=== PATIENT | male | born 1990 | race Caucasian/White ===

== ENCOUNTER 2021-10-30 16:24 | Emergency (ER) | payer OTHER, SELFPAY ==
[2021-10-30 16:21] VITALS: BP 122/74; PULSE 108; RESP 16; TEMP 36.8; O2SAT 99; BMI 24.4
--- NOTE | 2021-10-30 16:33 | ECG_ITS ---
APPROVED REPORT Exam: Resting ECG HR:109 bpm ECG Measurements Heart Rate 109 AXES NM 120 P 72 QRSd 104 QRS 87 QT 348 T 43 QTc 412 Conclusion SINUS TACHYCARDIA POSSIBLE LATERAL MYOCARDIAL INFARCTION , PROBABLY OLD [30 ms Q WAVE IN I/aVL/V5/V6] ABNORMAL ECG UNCONFIRMED REPORT Electronically signed by : Juan De La Paz MD 11/01/2021 19:34:42
--- NOTE | 2021-10-30 16:35 | HMH.EDGENADL ---
ED Disposition Clinical Impression: Heroin overdose Qualifiers: Encounter type: initial encounter Injury intent: accidental or unintentional Qualified Code(s): T40.1X1A - Poisoning by heroin, accidental (unintentional), initial encounter Disposition: Home, Self-Care Condition on Discharge: Good Instructions: DI for Drug Overdose in Adults Referrals: Heidi Guardado MD [Primary Care Provider] - - Critical Care Critical Care Time: No Attestation: On , the high probability of a clinically significant, sudden or life threatening deterioration of the following system(s) required my full and direct attention, intervention and personal management. The time I documented below is in addition to time spent performing reported procedures but includes the following listed in this critical care notation. Medical Decision Making - Medical Records Medical records reviewed: Yes: I reviewed the patient's medical records. - [place] Inquiry Pt receiving controlled substance: No Vital Signs: 10/30/21 16:21 10/30/21 17:21 Temperature 98.2 F Temperature Source Oral Pulse Rate [Right Radial] 108 H Respiratory Rate 16 Blood Pressure 114/76 Blood Pressure [Right Arm] 122/74 Blood Pressure Mean [Right Arm] 90 02 Sat by Pulse Oximetry 99 Oxygen Delivery Method Room Air Orders (Tests/Meds): ED MEDICATIONS Discontinued Medications Generic Name Dose Route Start Last Admin Trade Name Freq PRN Reason Stop Dose Admin Ondansetron HCl 4 mg 10/30/21 17:25 10/30/21 17:26 Ondansetron 4mg/2ml Vial IV 10/30/21 17:26 4 mg ONCE ONE Administration Medical Decision Narrative: ekg by mo sinus 109, qrs narrow, no st elev General Adult HPI - General Stated complaint: Overdose Time Seen by Provider: 10/30/21 16:35 Mode of Arrival: EMS Source of Information: Patient, EMS - History of Present Illness HPI narrative: accidental heroin od captain/airline pilot, narcan resolved Onset (ago): minute(s) Radiation: non-radiation Severity: severe Consistency: now resolved Relieving factors: other (narcan) Associated symptoms: denies other symptoms - Related Data Allergies Allergy/AdvReac Type Severity Reaction Status Date / Time No Known Allergies Allergy Unverified 09/16/17 14:55 [facility] History - Hepatitis A Screen Attestation statement:: This patient has been screened for Hepatitis A risk factors. - Social History Smoking Status: Current every day smoker # Packs/Day (cigarettes): 1 Alcohol Intake: never Substance Use Type: methamphetamine Occupational Status: unemployed ROS Obtained: Yes All systems reviewed & no additional complaints Physical Exam - General General appearance: alert, in no apparent distress - Head Head exam: atraumatic, normocephalic - Eye Eye exam: Present: normal appearance, PERRL, EOMI - ENT ENT exam: Present: normal exam, normal oropharynx - Neck Neck exam: Present: normal inspection, full ROM - Chest Chest inspection: Present: normal inspection, symmetric chest wall rise. Absent: tenderness - Respiratory Respiratory exam: Present: normal lung sounds bilaterally. Absent: respiratory distress, wheezes, stridor - Cardiovascular Cardiovascular exam: Present: regular rate, normal rhythm. Absent: bradycardia, tachycardia - Abdominal Exam Abdominal exam: Present: soft. Absent: distention, tenderness - Extremities Exam Extremities exam: Present: normal inspection, full ROM. Absent: tenderness - Back Exam Back exam: Present: normal inspection, full ROM. Absent: tenderness - Neurological Exam Neurological exam: Present: alert, oriented X3, CN II-XII intact - Psychiatric Psychiatric exam: Present: normal affect, normal mood. Absent: depressed, homicidal ideation, suicidal ideation - Skin Skin exam: Present: warm, dry, intact
[2021-10-30 17:21] VITALS: BP 114/76
--- NOTE | 2021-10-30 17:43 | PC.NURSE ---
Patient is sleeping
[2021-10-30 18:00] VITALS: BP 113/78; PULSE 107; RESP 17; TEMP 36.8; O2SAT 100
== END 2021-10-30 18:03 | disposition home or self-care (01) ==
PROVIDERS: Emergency Provider Emergency Medicine; PCP Family Medicine
DX: T40.1X1A Poisoning by heroin, accidental (unintentional), initial encounter (principal); F17.210 Nicotine dependence, cigarettes, uncomplicated
CPT/HCPCS: 93005; 96375; 99282; J2405

== ENCOUNTER 2024-04-09 16:24 | Emergency (ER) | payer OTHER, SELFPAY ==
[2024-04-09 16:25] VITALS: BP 127/75; PULSE 57; RESP 18; TEMP 36.9; O2SAT 98; BMI 23.0
--- NOTE | 2024-04-09 17:08 | ED_ITS ---
Discharge Plan Disposition Patient Disposition: Home, Self-Care Prescriptions Prescriptions: New ondansetron 4 mg tablet,disintegrating 4 mg PO Q6H PRN (Reason: nausea and vomiting) Qty: 10 0RF No Action prednisone 20 mg tablet 20 mg PO DAILY Qty: 18 0RF Rx Instructions: TID X 3 days, BID X 3 days, QD X 3 days meloxicam 15 mg tablet 15 mg PO DAILY Qty: 30 2RF Rx Instructions: Start taking after finishing Prednisone Referrals Follow up/Referrals: Tessa Chow PA [Primary Care Provider] - See instructions Activity Restrictions/Add. Instructions Additional Instructions/Restrictions: Call your family doctor to establish care for this visit to the emergency department and schedule follow-up within 48 hours to ensure improvement. If you have any worsening of your condition or any other concerning signs or symptoms, return to the emergency department or your primary care doctor for further evaluation. Ji sent to [facility] pharmacy, take this every 6 hours for vomiting until be able to follow-up on Friday. Clinical Impressions Clinical Impression: Opiate withdrawal, Vomiting Instructions Patient Instructions: DI for Diarrhea and Traveler's Diarrhea -- Adult, DI for Diarrhea and Traveler's Diarrhea -- Child, DI for Nausea -- Adult, DI for Nausea -- Child Discharge ED Provider: Olaf Peñaloza General Adult HPI General Chief complaint: Nausea/Vomiting/Diarrhea Stated complaint: vomiting Time Seen by Provider: 04/09/24 16:35 Mode of Arrival: Family Vehicle Limitations: No Limitations Description of Symptoms (Recalled from ER Triage Doc. by RN): Pt c/o nausea with vomiting for 3days. States he does snort heroin, last used 2 days ago. He also takes suboxone and vivitrol injection. He reports he has not been able to keep nothing down . History of Present Illness HPI narrative: Please note that above description of symptoms, in this electronic medical record under categorization of recalled from ER triage doctor by RN are reflective of an initial nursing assessment, however, is not reflective of my full history and physical exam that was personally taken and clarified. Consequentially, this preceding description of symptoms, which may include the patient's categorized chief complaint in the EMR, do not reflect my personal clinical impression, and the ultimate description of history of present illness and patient stated complaints should be deferred to this section of the note. Unless stated otherwise or congruent with this section of the note, additional signs, symptoms, or incongruence should be interpreted as inaccurate with my clinical impression. Related Data Previous Rx's Medication Instructions Recorded meloxicam 15 mg tablet 15 mg PO DAILY #30 tabs 06/26/23 prednisone 20 mg tablet 20 mg PO DAILY #18 tabs 06/26/23 ondansetron 4 mg disintegrating 4 mg PO Q6H PRN nausea and 04/09/24 tablet vomiting #10 tabs Allergies Allergy/AdvReac Type Severity Reaction Status Date / Time No Known Allergies Allergy Verified 06/26/23 09:58 [facility] Disclaimer: The information contained in this section may have been updated after the patient was seen, as this information can be updated by other users. Medical History (Updated 04/09/24 @ 20:02 by Olaf Peñaloza MD) Hepatitis C Surgical History (Updated 06/26/23 @ 09:58 by Marla Mcmahan MA) No history of previous surgery Social History (Updated 06/26/23 @ 10:00 by Marla Mcmahan MA) Smoking Status: Current every day smoker alcohol intake: never substance use type: former substance user current occupational status: unemployed Travel in the last 8 weeks: None ROS Obtained: Yes All systems reviewed & no additional complaints except as documented Physical Exam General General appearance: alert and other (Tearful, rhinorrhea, appears uncomfortable, but in no acute distress) Head Head exam: atraumatic and normocephalic Eye Eye exam: Present normal appearance, PERRL and EOMI Neck Neck exam: Present normal inspection, full ROM and trachea midline Respiratory Respiratory exam: Present normal lung sounds bilaterally; Absent respiratory distress, wheezes, stridor, accessory muscle use or prolonged expiratory phase Cardiovascular Cardiovascular exam: Present normal rhythm, tachycardia and other (Pulses equal symmetric in upper and lower extremities) Abdominal Exam Abdominal exam: Present soft; Absent distention, tenderness, guarding, rebound, rigidity or pulsatile mass Extremities Exam Extremities exam: Absent edema Neurological Exam Neurological exam: Present alert, oriented X3 and CN II-XII intact; Absent motor sensory deficit Skin Skin exam: Present warm and dry; Absent diaphoresis or erythema Medical Decision Making Medical Records Medical records reviewed: Yes I reviewed the patient's medical records. [place] Inquiry Pt receiving controlled substance: No [place] was queried for this patient: No Vital Signs: 04/09/24 16:25 Temperature 98.5 F Temperature Source Oral Pulse Rate [Right] 57 L Respiratory Rate 18 Blood Pressure [Right Arm] 127/75 Blood Pressure Mean [Right Arm] 92 Blood Pressure Source [Right Arm] Automatic Cuff 02 Sat by Pulse Oximetry 98 Oxygen Delivery Method Room Air Lab Data Lab Results 04/09/24 17:03: VBG pH 7.44 H, VBG pCO2 46.8, VBG pO2 27.6 L, VBG HCO3 31.2 H, V BG Total CO2 32.7 H, VBG O2 Saturation 53.8, VBG Base Excess 7.1 H, VBG Lactic Acid 2.0 04/09/24 17:35: WBC 17.6 H, RBC 5.46, Hgb 16.2, Hct 45.9, MCV 84.1, MCH 29.7, MCHC 35.3, RDW 14.2, Plt Count 389, MPV 7.5, Neut % (Auto) 85.9 H, Lymph % (Auto) 6.9 L, [place] % (Auto) 6.6, Eos % (Auto) 0.4, Baso % (Auto) 0.2, Neut # (Auto) 15.1 H, Lymph # (Auto) 1.2, [place] # (Auto) 1.2 H, Eos # (Auto) 0.1, Baso # (Auto) 0.0, Total Counted 100, Neutrophils % (Manual) 86 H, Lymphocytes % (Manual) 6 L, Monocytes % (Manual) 8, Platelet Estimate Normal, RBC Morphology Normal, Sodium 145, Potassium 3.4 L, Chloride 94 L, Carbon Dioxide 38 H, Anion Gap 16.4 H, BUN 21 H, Creatinine 1.30 H, Estimated Creat Clear 90, Estimated GFR 64, Est GFR ( Amer) 78, Glucose 133 H, Calcium 10.4 H, Total Bilirubin 0.9, AST 47, ALT 52, Alkaline Phosphatase 75, Total Protein 10.8 H D, Albumin 5.4 H, Globulin 5.4 H, Albumin/Globulin Ratio 1.0 L, Lipase 124 04/09/24 17:35 04/09/24 17:35 Orders (Tests/Meds): ED MEDICATIONS Generic Name Dose Route Start Last Admin Trade Name Freq PRN Reason Stop Dose Admin Sodium Chloride 8 ml 04/09/24 17:03 Sodium Chloride 0.9% 10ml Vial IV 05/09/24 17:02 NEEDED PRN dilute pepcid Discontinued Medications Generic Name Dose Route Start Last Admin Trade Name Freddie PRN Reason Stop Dose Admin Famotidine 20 mg 04/09/24 17:03 04/09/24 17:48 Famotidine 20mg/2ml Vial IV 04/09/24 17:04 20 mg ONCE ONE Administration Multivitamins 10 ml/ Thiamine 1,015 mls @ 500 mls/hr 04/09/24 17:03 04/09/24 17:40 HCl 100 mg/ Magnesium Sulfate IV 04/09/24 19:04 500 mls/hr 2 gm/ Lactated Ringer's .Q2H2M ONE Administration Ketorolac Tromethamine 15 mg 04/09/24 17:03 04/09/24 17:48 Ketorolac 30mg/Ml Vial IV 04/09/24 17:04 15 mg ONCE ONE Administration Ondansetron HCl 4 mg 04/09/24 17:03 04/09/24 17:48 Ondansetron 4mg/2ml Vial IV 04/09/24 17:04 4 mg ONCE ONE Administration ORDERS Category Date Time Status CBC w/Auto Diff [Complete Blood Count Auto Diff] Stat Lab 04/09/24 17:35 Completed CMP [Comprehensive Metabolic Panel] Stat Lab 04/09/24 17:35 Completed Lipase Stat Lab 04/09/24 17:35 Completed VBG [Venous Blood Gas] Stat RT 04/09/24 17:03 Completed Medical Decision Narrative: 33-year-old male history of heroin abuse via snorting presenting with withdrawals. Patient states he has been trying to get on Vivitrol shot, so he needs to be clean for 3 days. Stopped using his daily 2 g/day 2 days prior to this visit. Has been unable to tolerate any p.o. intake since that time. Having nausea, vomiting even in the absence of p.o. intake, chills, denies diarrhea. No blood in his vomit. States he has abdominal pain in the setting of vomiting, but when he is not vomiting, abdominal pain is minimal, if present at all. No recent travel, other medications, sick contacts, or any other concerns. History was obtained via conversation with patient. On arrival, patient hemodynamically stable, alert, oriented x4, appropriate, GCS 15, moving all extremities spontaneously, pupils equal and reactive to light. Full physical exam performed and significant for uncomfortable appearing male in no acute distress. Mildly tachycardic. Heart and lungs are clear to auscultation without abnormal findings. Patient's abdomen is soft, nontender, nondistended. Patient is tearful, has rhinorrhea. Bilateral conjunctival injection. Differential includes intoxication, withdrawal, dehydration, pancreatitis, cholecystitis, gastritis, enteritis, among others. Patient was given rally pack and Zofran for symptomatic management and correction of underlying abnormalities. Workup independently interpreted and significant for mild leukocytosis 17.6 with neutrophilia, likely due to stress of vomiting and withdrawal symptoms. Gas nonactionable, lactate negative. Patient's CMP nonactionable other than mildly elevated creatinine, given fluids for this. Nutrition levels appear normal. Lipase negative.On reevaluation, patient able to tolerate p.o. intake and sleeping. Because patient at baseline without signs or symptoms of clinical decompensation, deemed appropriate for discharge. Results were relayed to patient who voiced understanding and were agreeable to outpatient management and follow up. I discussed my clinical impression with patient and answered all questions. At this time, the evidence for any other entities in the differential is insufficient to warrant any further testing or ED observation. This was explained as well. Advisory was given that persistent or worsening symptoms require further evaluation. I confirmed the understanding of this discussion. [employer] disclaimer Much of this encounter note is an electronic gluer machine operator spoken language to printed text. Electronic gluer machine operator of the spoken language may permit errors. Although I have reviewed the note, some errors may still exist. Critical Care Critical Care Time Critical Care Time: No
[2024-04-09] MEDS: MVI, ADULT NO.1 WITH VIT K 10 ML, THIAMINE HCL 100 MG, MAGNESIUM SULFATE 2 GM in LACTAT... 500 ML IV (17:40)
[2024-04-09] MEDS: ONDANSETRON 4MG/2ML VIAL 4 MG IV (17:48)
[2024-04-09] MEDS: FAMOTIDINE 20MG/2ML VIAL 20 MG IV (17:48)
[2024-04-09] MEDS: KETOROLAC 30MG/ML VIAL 15 MG IV (17:48)
[2024-04-09 17:55] LABS: Basophils % 0.2 % (0.1-2.0); Eosinophils # 0.1 K/mm3 (0.0-0.4); Eosinophils % 0.4 % (0.1-12.0); Hematocrit 45.9 % (42.0-52.0); Hemoglobin 16.2 g/dL (14.1-18.0); Lymphocytes # 1.2 K/mm3 (0.7-4.5); Lymphocytes % 6.9 % (10-50); Mean Corpuscular HGB Conc 35.3 g/dL (31.8-35.4); Mean Corpuscular Hemoglobin 29.7 pg (27.0-31.2); Mean Corpuscular Volume 84.1 fl (80-94); Mean Platelet Volume 7.5 fl (7.4-10.4); Monocytes # 1.2 K/mm3 (0.1-1.0); Monocytes % 6.6 % (1.7-9.3); Neutrophils # 15.1 K/mm3 (1.8-7.8); Neutrophils % 85.9 % (37.0-80.0); Platelet Count 389 K/mm3 (142-424); Red Blood Count 5.46 M/mm3 (4.60-6.20); Red Cell Distribution Width 14.2 % (11.5-17.5); White Blood Count 17.6 K/mm3 (4.8-10.8)
[2024-04-09 17:59] LABS: MANUAL DIFFERENTIAL MANUAL DIFFERENTIAL (MANUAL DIFF)
[2024-04-09 18:01] LABS: Chloride 94 mmol/L (98-107)
[2024-04-09 18:02] LABS: Potassium 3.4 mmoL/L (3.5-5.1); Sodium 145 mmol/L (136-145)
[2024-04-09 18:04] LABS: Alanine Aminotransferase 52 U/L (12-78); Aspartate Amino Transferase 47 U/L (17-59); Blood Urea Nitrogen 21 mg/dl (9-20); Creatinine Clearance Estimated 90 mL/min (50-200); Estimated Glomerular Filt Rate 64 ml/min (>60); GFR (African American) 78 ML/MIN (>60)
[2024-04-09 18:05] LABS: Albumin Level 5.4 g/dl (3.5-5.0); Alkaline Phosphatase 75 U/L (38-126); Anion Gap 16.4 mEq/L (5-15); Bilirubin,Total 0.9 mg/dl (0.2-1.3); Calcium 10.4 mg/dl (8.4-10.2); Carbon Dioxide 38 mmol/L (22.0-30.0); Globulin 5.4 g/dL (1.3-3.2); Glucose 133 mg/dl (74-100); Lipase 124 U/L (23-300); Total Protein,Serum 10.8 g/dl (6.3-8.2)
[2024-04-09 18:31] LABS: VBG Base Excess 7.1 mmol/L (-2.4-2.3); VBG HCO3 31.2 mmol/L (23-30); VBG Oxygen Saturation 53.8 % (50-70); VBG PCO2 46.8 mmol/L (35-51); VBG PH 7.44 mmol/L (7.31-7.41); VBG PO2 27.6 mmol/L (28-40); VBG Total CO2 32.7 mmol/L (23-27)
[2024-04-09 19:16] LABS: Lymphocytes % 6 % (10-50); Monocytes % 8 % (2-9); Neutrophils % 86 % (42-76); Total Cells Counted 100
[2024-04-09 19:17] LABS: Platelet Estimate Normal; RBC Morphology Normal
--- NOTE | 2024-04-09 19:56 | PC.NURSE ---
Pt. took some Sprite and has kept it down.
[2024-04-09 20:14] VITALS: BP 103/50; PULSE 53; RESP 20; TEMP 36.6; O2SAT 100
== END 2024-04-09 20:17 | disposition home or self-care (01) ==
PROVIDERS: Emergency Provider Emergency Medicine; PCP Physician Assistant
DX: F11.13 Opioid abuse with withdrawal (principal); R11.2 Nausea with vomiting, unspecified; F17.210 Nicotine dependence, cigarettes, uncomplicated
CPT/HCPCS: 80053; 82803; 83690; 85007; 85025; 85027; 96365; 96366; 96375; 99284; J1885; J2405; J3411; J7120

== ENCOUNTER 2025-04-28 15:45 | Emergency (ER) | payer OTHER, SELFPAY ==
[2025-04-28 15:55] VITALS: BP 113/53; PULSE 65; RESP 16; TEMP 37; O2SAT 97; BMI 28.5
--- OUTSIDE RECORDS SUMMARY | 2025-04-28 16:00 | XMS_ITS | Clinical Summary ---
Author Organization [facility] Address [address] [place] [address] Phone Care Team Providers Care Supervisor Liquid Yeast Name Role Phone Unavailable Primary Care Provider Unavailabl e Allergies No known active allergies Medications * This document contains information received from the source organization and may not represent a complete record from that organization. benzocaine (ORAJEL) 10 % MM Gel Take by mouth 5 times dialy as needed for Pain. 12/03/2017 Active NALOXONE RESCUE KIT To be given as needed to reverse opioid overdose. 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 Hepatitis B antibody positive 11/29/2017 Hepatitis C antibody test positive 11/29/2017 Opioid use disorder, severe, in controlled environment, dependence 11/28/2017 Tobacco use disorder, continuous 11/28/2017 Methamphetamine use disorder , mild, in controlled environment, abuse 11/28/2017 Chronic dental pain 11/28/2017 Abnormal LFTs 11/28/2017 Medical History Medical History Date Comments Hepatitis B Hepatitis C Family History Medical History Relation Name Comments Substance Abuse Father Relation Name Status Comments Father Social History Tobacco Use Types Packs/Day Years Used Date Smoking Tobacco: Every Day Cigarettes 1 7 Smokeless Tobacco: Current Snuff Tobacco Cessation:Ready to Q uit: No Alcohol Use Standard Drinks/Week Comments Yes 0 (1 standard drink = 0.6 oz pur e alcohol) year ago Sex and Gender Information Value Date Recorded Sex Assigned at Not on file Legal Sex Male 8:39 AM EST Gender Identity Not on file Sexual Orientation Not on file Obstetrics History Last Filed Vital Signs Vital Sign Reading Time Taken Comments Blood Pressure 126/82 12/04/2017 7:49 AM EST Pulse 106 12/04/2017 7:49 AM EST Temperature 36.3 C (97.4 F) 12/04/2017 7:49 AM EST Respiratory Rate 18 12/04/2017 7:49 AM EST Oxygen Saturation 99% 12/04/2017 7:49 AM EST Inhaled Oxygen Concentration - - Weight 75 kg (165 lb 5 oz) 11/28/2017 11:[address] Height 180.3 cm (5' 11 ) 11/28/2017 11:14 AM EST Body Mass Index 23.06 11/28/2017 11:14 AM EST Plan of Treatment Health Maintenance Due Date Last Done Comments Annual Wellness Exam 1995 DTaP/TDaP/Td (1 - Tdap) 2011 Hepatitis B Vaccine (1 of 3 - 19+ 3-dose series) 2011 COVID-19 Vaccine ( - 2023-2 5 season) 2024 Influenza Vaccine (#1) 2025 Meningococcal B Vaccine Aged Out No l onger eligible based on patient's age to complete this topic Pneumococcal Vaccine 0-49 Aged Out No longer eligible based on patient's age to complete this topic Insurance [address] [place] [address] [employer] PPO Advance Directives For more information, please contact: [phone] * Full Code (Latest Code Status on File) Date Activated Date Inactivated Comments 11/28/2017 11:53 AM 12/04/2017 1:51 PM
--- NOTE | 2025-04-28 17:07 | ED_ITS ---
<Statement entered by Amelia Javier DO - 04/28/25 23:27> I was consulted by the RODY, and we discussed the complexity of the problems being addressed. I approved the treatment and management plan for this patient's care in the emergency department, thus performing a substantive portion of the medical decision making. Amelia Javier DO Discharge Plan Disposition Patient Disposition: Home, Self-Care Condition: Good Prescriptions Prescriptions: No Action prednisone 20 mg tablet 20 mg PO DAILY Qty: 18 0RF Rx Instructions: TID X 3 days, BID X 3 days, QD X 3 days meloxicam 15 mg tablet 15 mg PO DAILY Qty: 30 2RF Rx Instructions: Start taking after finishing Prednisone promethazine 12.5 mg tablet 12.5 mg PO TID PRN (Reason: nausea and vomiting) Qty: 20 0RF ondansetron 4 mg tablet,disintegrating 4 mg PO Q6H PRN (Reason: nausea and vomiting) Qty: 10 0RF Referrals Follow up/Referrals: Tessa Chow PA [Primary Care Provider, Medical] - See instructions Activity Restrictions/Add. Instructions Additional Instructions/Restrictions: Please return to the emergency department with any worsening signs or symptoms, please monitor for any redness swelling or discharge from the wound, please return to the emergency department or PCP office to have sutures removed in 5 to 7 days, keep the area clean and dry. Clinical Impressions Clinical Impression: Complex laceration of chin Instructions Patient Instructions: DI for Laceration Repair Print Language Print Language: [place] Discharge ED Provider: Amelia Javier General Adult HPI General Chief complaint: Wound/Laceration Stated complaint: AO 04/28/25 1000 Laceration to chin Time Seen by Provider: 04/28/25 16:00 Mode of Arrival: Ambulatory Source of Information: Patient Description of Symptoms (Recalled from ER Triage Doc. by RN): Patient states about 1000 this morning he cut his chin on a piece of wood. History of Present Illness HPI narrative: 34-year-old male presents to the emergency department with a chin laceration approximately 2-2,5 cm, patient states he was working outside on a [employer] , when a piece of wood flew up and hit me in the chin , thus sustained laceration to the area, bleeding is controlled at this time, patient denies the wood striking his head, denies any LOC, denies any fever chills chest pain shortness of breath nausea vomiting constipation diarrhea no abdominal pain, no urinary type symptomatology, patient admits to current tobacco use, denies any alcohol or drug use, denies any other real relevant past medical history takes no other medications at home, does have history upon chart review of opioid withdrawal and hepatitis C. Patient is unsure of his last tetanus prophylaxis. Initial triage vitals unremarkable. Please note that above description of symptoms, in this electronic medical record under categorization of recalled from ER triage doctor by RN are reflective of an initial nursing assessment, however, is not reflective of my full history and physical exam that was personally taken and clarified. Consequentially, this preceding description of symptoms, which may include the patient's categorized chief complaint in the EMR, do not reflect my personal clinical impression, and the ultimate description of history of present illness and patient stated complaints should be deferred to this section of the note. Unless stated otherwise or congruent with this section of the note, additional signs, symptoms, or incongruence should be interpreted as inaccurate with my clinical impression. Onset (ago): hour(s) Related Data Previous Rx's ?Medication ?Instructions ?Recorded meloxicam 15 mg tablet 15 mg PO DAILY #30 tabs 05/31 05/21 prednisone 20 mg tablet 20 mg PO DAILY #18 tabs 05/31 05/21 ondansetron 4 mg disintegrating 4 mg PO Q6H PRN nausea and 04/09/24 tablet vomiting #10 tabs promethazine 12.5 mg tablet 12.5 mg PO TID PRN nausea and 04/12/24 vomiting #20 tabs Allergies Allergy/AdvReac Type Severity Reaction Status Date / Time No Known Allergies Allergy Verified 06/26/23 09:58 [facility] Disclaimer: The information contained in this section may have been updated after the patient was seen, as this information can be updated by other users. Medical History (Updated 04/28/25 @ 17:57 by JONE Silva) Hepatitis C Surgical History (Updated 06/26/23 @ 09:58 by Marla Mcmahan MA) No history of previous surgery Social History (Updated 06/26/23 @ 10:00 by Marla Mcmahan MA) Smoking Status: Current every day smoker alcohol intake: never substance use type: former substance user current occupational status: unemployed Travel in the last 8 weeks?: None Have you lived/traveled outside [place] in past 30 days?: No Contact w/someone who lives/traveled outside US past 30 days?: No Exposure to someone with infectious disease in past 14 days?: No Do you have a fever (greater than 100.4 F or 38 C)?: No Have you tested positive for COVID-19?: No Exposed to someone with COVID-19 in past 14 days?: No Do you have a sore throat?: No Do you have a cough?: No Do you have any weakness?: No Do you have any diarrhea?: No Are you experiencing any unusual bleeding?: No Do you have any muscle aches/pain?: No Do you have any abdominal pain?: No Are you experiencing loss of taste or smell?: No Other Medical History Have you received the Flu Vaccine for this season: No Have you received the Pneumonia Vaccine: No ROS Obtained: Yes All systems reviewed & no additional complaints except as documented Physical Exam General General appearance: alert and in no apparent distress Head Head exam: atraumatic and normocephalic Eye Eye exam: Present PERRL and EOMI ENT ENT exam: Present mucous membranes moist Neck Neck exam: Present normal inspection Chest Chest inspection: Present normal inspection and symmetric chest wall rise Respiratory Respiratory exam: Present normal lung sounds bilaterally; Absent respiratory distress Cardiovascular Cardiovascular exam: Present regular rate and normal rhythm Abdominal Exam Abdominal exam: Present soft; Absent tenderness Extremities Exam Extremities exam: Present normal inspection Neurological Exam Neurological exam: Present alert and oriented X3 Psychiatric Psychiatric exam: Present normal affect Skin Skin exam: Present warm, dry and other (Laceration in the patient's coleman on the right side of the patient's chin, approximately 1 cm in length.) Medical Decision Making Medical Records Medical records reviewed: Yes I reviewed the patient's medical records. Screening: Per USPSTF and CDC recommendations, given the prevalence of disease in our region, it is our hospital?s policy to screen for HIV and viral Hepatitis for all patients aged 18 and over and those with ongoing risk factors. [place] Inquiry Pt receiving controlled substance: No [place] was queried for this patient: No Vital Signs: 04/28/25 15:55 Temperature 98.6 F Temperature Source Oral Pulse Rate [Right Brachial] 65 Respiratory Rate 16 Blood Pressure [Right Arm] 113/53 L Blood Pressure Mean [Right Arm] 73 Blood Pressure Source [Right Arm] Automatic Cuff Blood Pressure Position [Right Arm] Sitting 02 Sat by Pulse Oximetry 97 Oxygen Delivery Method Room Air Orders (Tests/Meds): ED MEDICATIONS Discontinued Medications Generic Name Dose Route Start Last Admin Trade Name Freddie PRN Reason Stop Dose Admin Lidocaine HCl 10 ml 04/28/25 17:09 04/28/25 17:33 Lidocaine 1% 10ml Mdv IJ 04/28/25 17:10 10 ml ONCE ONE Administration Tetanus/Reduced Diphtheria/Acell Pertussis 0.5 ml 04/28/25 16:41 Tet/Diphth/Pert-Adult 0.5ml Syringe IM 04/28/25 16:42 .ONCE ONE Medical Decision Narrative: 34-year-old male presents emerged part with a right sided chin laceration after a piece of wood hit him today, differential diagnosis include but not limited to, laceration, abrasion among others. I discussed the patient's case with the attending physician Dr. Javier Unfortunately, patient will require primary intention/closure with sutures, will have to shave the patient's coleman in order to get good visualization of the laceration is appears to be approximately 2-2.5 cm. See procedure note for full details, after copious irrigation of the wound explored for any foreign body, with normal saline, Hibiclens scrub, I utilized approximately 5 mL of 1%, Localized Analgesia Was Achieved, and Patient's Wound Was Sutured with 4 5-0 sutures, patient had somewhat of a regular wound, and skin flap closure, wound margins revitalize, patient voiced understanding and agreed with the current treatment plan/discharge plan. Patient was given strict ED return precautions generalized wound precautions. Patient will return to the emergency department or outpatient facility to have sutures removed in 5 to 7 days. Procedures Laceration Laceration 1: Site: face Side (If applicable): right Size (cm): 2.5 Description: flap and irregular Depth: simple, single layer Local Anesthetic: lidocaine 1% Amount of anesthesia used (mL): 5 Pre-repair: wound explored, irrigated extensively and deep structures intact Skin layer closed with: nylon Size (cm): 5-0 Number of sutures: 4 Technique: simple, interrupted Critical Care Critical Care Time Critical Care Time: No
[2025-04-28] MEDS: LIDOCAINE 1% 10ML MDV 10 ML IJ (17:33)
[2025-04-28] MEDS: TET/DIPHTH/PERT-ADULT 0.5ML SYRINGE 0.5 ML IM (18:07)
[2025-04-28 18:15] VITALS: BP 109/67; PULSE 58; RESP 17; TEMP 37.1; O2SAT 98
== END 2025-04-28 18:17 | disposition home or self-care (01) ==
PROVIDERS: Emergency Provider Emergency Medicine; PCP Physician Assistant
DX: S01.81XA Laceration without foreign body of other part of head, initial encounter (principal); W20.8XXA Other cause of strike by thrown, projected or falling object, initial encounter
CPT/HCPCS: 12011; 90471; 90715; 99283; J2003